=== PATIENT | female | born 1960 | race Caucasian/White ===

== ENCOUNTER 2016-12-24 08:54 | Emergency (ER) | payer BC ==
[~2016-12-24] VITALS: Ht 167.6 cm; Wt 79.4 kg
== END 2016-12-24 09:45 | disposition short-term general hospital (02) ==
LOC: ER 08:54
DX: M54.16 Radiculopathy, lumbar region (principal); Z98.890 Other specified postprocedural states; Z79.899 Other long term (current) drug therapy; Z90.89 Acquired absence of other organs
CPT/HCPCS: J1885

== ENCOUNTER → 2017-01-19 | Outpatient (CLI) | payer BC | END | disposition short-term general hospital (02) | LOC: CLPAIN 07:41 | DX: M47.26 Other spondylosis with radiculopathy, lumbar region (principal); M48.06 Spinal stenosis, lumbar region; G89.28 Other chronic postprocedural pain ==